=== PATIENT | female | born 1995 | race Caucasian/White ===

== ENCOUNTER 2016-05-30 21:16 | Emergency (ER) | payer OTHER ==
[~2016-05-30] VITALS: Ht 147.3 cm; Wt 63.5 kg
[2016-05-30 21:27] VITALS: BP 138/81
--- NOTE | 2016-05-31 02:11 | NUR ---
PT TAKEN TO [facility]
--- NOTE | 2016-05-31 02:21 | NUR ---
Dr. Carlos evaluating patient
--- NOTE | 2016-05-31 02:25 | NUR ---
PT PRESENTS TO ED WITH LT EAR PAIN, PAIN SCALE 3/10 AND BLEEDING [id number], NO ACTIVE BLEEDING AT THIS TIME. S/P PLACING STETHOSCOPE IN EAR WITHOUT RUBBER EAR COVERS. HX: MENTAL DISABILITY. ERMD AWARE.
--- NOTE | 2016-05-31 03:05 | NUR ---
DR. GIBBS REEVALUATING PT.
[2016-05-31 03:08] VITALS: BP 118/68
--- NOTE | 2016-05-31 03:08 | NUR ---
Patient discharged with v/s stable. Written and verbal after care instructions given and explained. Patient verbalized understanding. Ambulatory with steady gait. All questions addressed prior to discharge. Advised to follow up with PMD. ID BAND REMOVED
== END 2016-05-31 03:08 | disposition home or self-care (01) ==
LOC: MED 21:27
DX: S09.91XA Unspecified injury of ear, initial encounter (principal); X58.XXXA Exposure to other specified factors, initial encounter; Y93.89 Activity, other specified; Y92.89 Other specified places as the place of occurrence of the external cause; Y99.8 Other external cause status
CPT/HCPCS: 99283